=== PATIENT | male | born 1950 | race Caucasian/White ===

== ENCOUNTER → 2023-03-25 08:15 | Outpatient (REF) | payer BC, SELFPAY | LOC: RCS 08:15 | PROVIDERS: ATTENDING PHYSICIAN Internal Medicine Geriatric Medicine | DX: K21.9 Gastro-esophageal reflux disease without esophagitis (principal); R07.9 Chest pain, unspecified; M65.341 Trigger finger, right ring finger; E78.2 Mixed hyperlipidemia; E55.9 Vitamin D deficiency, unspecified; I45.10 Unspecified right bundle-branch block; Z13.31 Encounter for screening for depression; Z12.5 Encounter for screening for malignant neoplasm of prostate | CPT/HCPCS: 93017; 93350 ==

== ENCOUNTER → 2023-05-29 07:25 | Outpatient (REF) | payer BC, SELFPAY ==
[2023-05-29 08:47] LABS: % Basophils 1.1 % (0-2); % Eosinophils 3.9 % (0-6); % Lymphocytes 44.5 % (20.5-51.1); % Monocytes 10.2 % (1.7-9.3); % Neutrophils 40.3 % (42.2-75.2); Absolute Basophils 0.1 10^3/uL (0-0.2); Absolute Eosinophils 0.2 10^3/uL (0-0.7); Absolute Lymphocytes 2.1 10^3/uL (1.2-3.4); Absolute Monocytes 0.5 10^3/uL (0.1-0.6); Absolute Neutrophils 1.9 10^3/uL (1.4-6.5); Hematocrit 37.7 % (39.0-52.0); Hemoglobin 12.8 g/dL (13.0-18.0); Mean Corpuscular Hgb 32.2 pg (27.0-31.0); Mean Corpuscular Volume 94.7 fL (80.0-94.0); Mean Platelet Volume 8.9 fL (7.4-10.4); Nucleated Red Blood Cells % 0 % (-); Platelet Count 246 10^3/uL (130-400); Red Blood Cell Count 3.98 10^6/uL (4.70-6.10); Red Cell Dist. Width 12.8 % (11.5-14.5); White Blood Cell Count 4.6 10^3/uL (4.8-10.8)
[2023-05-29 09:16] LABS: ALT (SGPT) 26 U/L (0-50); AST (SGOT) 25 U/L (17-59); Albumin 4.1 g/dl (3.5-5.0); Alkaline Phosphatase 51 U/L (38-126); Blood Urea Nitrogen 22 mg/dl (9-20); Calcium 9.7 mg/dl (8.4-10.2); Carbon Dioxide 25 mmol/L (22-30); Chloride 105 mmol/L (98-107); Glucose 112 mg/dl (70-99); Potassium 4.1 mmol/L (3.5-5.1); Sodium 137 mmol/L (135-145); Total Bilirubin 0.3 mg/dl (0.2-1.3); Total Protein 6.4 g/dl (6.3-8.2); eGFR > 60.00
[2023-05-29 09:21] LABS: C-Reactive Protein < 5.00 mg/L (0.0-10.00)
[2023-05-29 10:43] LABS: Erythrocyte Sed Rate 12 mm/hour (0-20)
[2023-05-30 21:02] LABS: CCP Antibody IgG/IgA 3 Units (0-19)
[2023-05-30 21:25] LABS: ANA, IgG Reflex to HEp-2 None Detected (None Detected)
[2023-05-31 00:44] LABS: Endomysial IgA Antibody Titer <1:10 (<1:10)
[2023-06-01 04:09] LABS: IgA 220 mg/dl (70-400)
[2023-06-01 16:12] LABS: Rheumatoid Agglutinin Less Than 10 IU (<10 IU)
[2023-06-03 15:54] LABS: tTG IgA Antibody 4.7 EU/ml (0-19); tTG IgG Antibody 5.1 EU/ml (0-19)
== END ==
LOC: RAD 07:25
PROVIDERS: ATTENDING PHYSICIAN Internal Medicine Geriatric Medicine
DX: R07.9 Chest pain, unspecified (principal); K21.9 Gastro-esophageal reflux disease without esophagitis; M65.341 Trigger finger, right ring finger; E78.2 Mixed hyperlipidemia; I10 Essential (primary) hypertension; E55.9 Vitamin D deficiency, unspecified; I45.10 Unspecified right bundle-branch block; Z13.31 Encounter for screening for depression
CPT/HCPCS: 36415; 73130; 80053; 82784; 83516; 85025; 85652; 86038; 86140; 86200; 86231; 86430

== ENCOUNTER → 2024-03-18 10:48 | Outpatient (REF) | payer BC, MEDICARE, SELFPAY | LOC: RAD 10:48 | PROVIDERS: ATTENDING PHYSICIAN Nurse Practitioner Family | DX: M25.512 Pain in left shoulder (principal) | CPT/HCPCS: 73030 ==

== ENCOUNTER → 2024-11-11 14:28 | Outpatient (REF) | payer BC, MEDICARE, SELFPAY ==
[2024-11-11 15:00] LABS: Hematocrit 37.9 % (39.0-52.0); Hemoglobin 13.0 g/dL (13.0-18.0); Mean Corp Hgb Conc. 34.3 g/dL (33.0-37.0); Mean Corpuscular Volume 92.7 fL (80.0-94.0); Nucleated Red Blood Cells % 0 % (-); Platelet Count 214 10^3/uL (130-400); Red Cell Dist. Width 12.5 % (11.5-14.5)
[2024-11-11 15:31] LABS: ALT (SGPT) 20 U/L (0-50); AST (SGOT) 20 U/L (17-59); Albumin 4.2 g/dl (3.5-5.0); Alkaline Phosphatase 71 U/L (38-126); Blood Urea Nitrogen 16 mg/dl (9-20); Calcium 9.6 mg/dl (8.4-10.2); Carbon Dioxide 27 mmol/L (22-30); Chloride 104 mmol/L (98-107); Glucose 123 mg/dl (70-99); Potassium 4.2 mmol/L (3.5-5.1); Sodium 138 mmol/L (135-145); Total Protein 6.7 g/dl (6.3-8.2); eGFR > 60.00
[2024-11-11 17:09] LABS: Urine Character Clear (Clear)
[2024-11-11 17:28] LABS: Urine Squamous Cell 0-2 /LPF (Few)
[2024-11-11 17:29] LABS: Urine Red Blood Cell 0-2 /HPF (0-2); Urine White Cell 0-2 /HPF (0-5)
== END ==
LOC: REG 14:28
PROVIDERS: ATTENDING PHYSICIAN Nurse Practitioner Family; FAMILY PHYSICIAN Internal Medicine Geriatric Medicine
DX: M65.341 Trigger finger, right ring finger (principal); G60.3 Idiopathic progressive neuropathy; S39.011A Strain of muscle, fascia and tendon of abdomen, initial encounter; M62.08 Separation of muscle (nontraumatic), other site; R10.30 Lower abdominal pain, unspecified
CPT/HCPCS: 36415; 73120; 80053; 81003; 81015; 85025